=== PATIENT | male | born 1960 | race Caucasian/White ===

== ENCOUNTER → 2016-08-11 | Outpatient (CLI) | payer OTHER ==
[~2016-08-11] VITALS: Ht 193 cm; Wt 102.1 kg
[~2016-08-11] MED LIST: APAP500 PO; ASPIR 8181 MG PO; ELIQUIS5 MG PO; LOPRESSOR50 PO; PRINIVIL40 MG PO
--- NOTE | ~2016-08-11 | HPC ---
[facility] [place] [address] PAIN MANAGEMENT CONSULTATION Name: GODFREY ALEMAN Room #: REG BERNABE Del Cid#: [id number] Admission: 08/11/16 Attend Phys: Tres Hudson DO Discharge: Date of : 62 Report #: [id number] THIS REPORT FOR: //name// CC: [facility] physician/PCP Tres Hudson DATE OF SERVICE: 08/11/2016 The patient is a very pleasant 56-year-old gentleman who had presented last Thursday to clinic for #3 in a series of cervical epidural injections with significant overall improvement of baseline pain. Unfortunately, he was still on his Eliquis at that time. Returns to the pain clinic today for #3 cervical injection for ongoing cervical radicular symptoms. Rates the pain a 3-4/10. He has had near 100% relief initially following 2 injections. We have elected to proceed with the injection today, resume his Eliquis tomorrow. Follow up in 3 weeks for evaluation. If symptoms continue, we will consider referral to Neurosurgery. ASSESSMENT: Symptomatic cervical radiculopathy. PROCEDURE: Cervical epidural injection under fluoroscopy. PROCEDURE NOTE: After written and informed consent was obtained including risk of dural puncture, spinal cord trauma, paralysis and increased pain, the patient was taken to the fluoroscopy suite and placed in the prone position, with appropriate abdominal bolstering, neck was flexed, palms under the thighs. Skin was prepped with ChloraPrep. Sterile draping was applied. Skin wheal with 1% Xylocaine was raised. A 22-gauge 3-1/2 inch epidural Tuohy needle was placed via a midline approach at the C7-T1 interspace, advanced under biplanar fluoroscopy using continuous loss of resistance. With appropriate loss of resistance at the expected depth on lateral view, the glass loss of resistance syringe was disconnected. A low volume extension tubing was connected to the needle and a 5 mL syringe. Negative aspiration for cerebrospinal fluid or blood was noted. A 1 mL of Omnipaque was injected which showed spread within the epidural space on biplanar fluoroscopy. This was followed with 80 mg of triamcinolone plus 1 mL of 1.5% preservative Xylocaine. Needle was withdrawn to the interspinous ligament, 0.5 mL of Xylocaine was used to flush the needle. The needle was then completely withdrawn. The area was cleansed. Band-Aid was applied. The patient was allowed to move off the procedure table and ambulated to the recovery room, monitored for an appropriate period of time, discharged in good and stable condition. <ELECTRONICALLY SIGNED> By: Tres Hudson DO 08/18/16 [id number] Tres Hudson DO /nt
[2016-08-11 14:52] VITALS: BP 125/70
== END ==
LOC: PAIN 06:52
DX: M54.12 Radiculopathy, cervical region (principal); I10 Essential (primary) hypertension; Z87.891 Personal history of nicotine dependence

== ENCOUNTER → 2016-11-17 | Outpatient (CLI) | payer OTHER ==
[~2016-11-17] VITALS: Ht 193 cm; Wt 103.0 kg
--- NOTE | ~2016-11-17 | HPC ---
[facility] [address] [place] [address] PAIN MANAGEMENT CONSULTATION Name: GODFREY ALEMAN Room #: REG BERNABE Del Cid#: [id number] Admission: 11/17/16 Attend Phys: Tres Hudson DO Discharge: Date of : 62 Report #: [id number] THIS REPORT FOR: //name// CC: [facility] physician/PCP Tres Hudson The patient is a very pleasant 56-year-old gentleman, treated for symptomatic cervical radiculopathy, he had 2 cervical epidural injections back in March with excellent improvement in symptoms. The patient notes pain has gradually begun to recur, we seen in the pain clinic 08/11/2016, with recurrent radicular symptoms neck, shoulder, right greater than left arm. He notes he had near 100% relief for several weeks, pain has gradually begun to recur without antecedent trauma and overuse. PHYSICAL EXAMINATION: Shows a pleasant 56-year-old gentleman. Cervical range of motion is limited. Positive Lhermitte's. Upper extremity strength shows slight decreased right upper extremity compared to left. Heart is regular rhythmical. Lungs are clear. Vital signs are stable as noted in the EMR. He has been off his Eliquis for 4 days. I did do a [employer] lookup , which showed no opiate prescriptions generated for this patient. ASSESSMENT: Symptomatic cervical radiculopathy. RECOMMENDATION: Repeat cervical epidural injection under fluoroscopy today. Continue Tylenol for pain, nonsteroidal anti-inflammatory medications are relatively contraindicated due to Eliquis. Resume Eliquis tonight. Follow up simply as needed. PROCEDURE: Cervical epidural injection under fluoroscopy. PROCEDURE NOTE: After written and informed consent was obtained including risk of dural puncture, spinal cord trauma, paralysis and increased pain, the patient was taken to the fluoroscopy suite and placed in the prone position, with appropriate abdominal bolstering, neck was flexed, palms under the thighs. Skin was prepped with ChloraPrep. Sterile draping was applied. Skin wheal with 1% Xylocaine was raised. A 22-gauge 3-1/2 inch epidural Tuohy needle was placed via a midline approach at the C7-T1 interspace, advanced under biplanar fluoroscopy using continuous loss of resistance. With appropriate loss of resistance at the expected depth on lateral view, the glass loss of resistance syringe was disconnected. A low volume extension tubing was connected to the needle and a 5 mL syringe. Negative aspiration for cerebrospinal fluid or blood was noted. One mL of Omnipaque was injected which showed spread within the epidural space on biplanar fluoroscopy. This was followed with 80 mg of triamcinolone plus 1 mL of 1.5% preservative Xylocaine. Needle was withdrawn to the interspinous ligament, 0.5 mL of Xylocaine was used to flush the needle. [facility] [address] [place] [address] PAIN MANAGEMENT CONSULTATION Name: GODFREY ALEMAN Room #: REG BERNABE Del Cid#: [id number] Admission: 11/17/16 Attend Phys: Tres Hudson DO Discharge: Date of : 62 Report #: [id number] The needle was then completely withdrawn. The area was cleansed. Band-Aid was applied. The patient was allowed to move off the procedure table and ambulated to the recovery room, monitored for an appropriate period of time, discharged in good and stable condition. By: [id number] Tres Hudson DO /nt
[2016-11-17 10:51] VITALS: BP 137/73
== END | disposition home or self-care (01) ==
LOC: PAIN 06:52
DX: M54.12 Radiculopathy, cervical region (principal); Z87.891 Personal history of nicotine dependence

== ENCOUNTER → 2017-02-12 | Outpatient (CLI) | payer OTHER ==
[~2017-02-12] VITALS: Ht 193 cm; Wt 99.7 kg
[2017-02-12 10:39] VITALS: BP 101/56
== END | disposition home or self-care (01) ==
LOC: PAIN 06:45
DX: M54.12 Radiculopathy, cervical region (principal); Z98.890 Other specified postprocedural states; Z87.891 Personal history of nicotine dependence; Z79.899 Other long term (current) drug therapy